=== PATIENT | female | born 1970 | race Two or more races ===

== ENCOUNTER 2017-04-29 20:35 | Inpatient (IN) | payer MEDICAID ==
[~2017-04-29] VITALS: Ht 157.5 cm; Wt 79.4 kg
[2017-04-29] MEDS ORDERED: NKM (21:02)
[2017-04-29] MEDS ORDERED: Lidocaine 2% Visc 15ml soln ORAL ONE (21:30)
[2017-04-29] MEDS ORDERED: Dicyclomine HCl 10mg/5ml oral soln ORAL ONE (21:30)
[2017-04-29] MEDS ORDERED: Mylanta II UD 30ml ORAL ONE (21:30)
[2017-04-29 21:50] LABS: BASOPHILS % (AUTO) 0.4 % (0.0-2.0); EOSINOPHILS % (AUTO) 0.3 % (0.0-3.0); HEMATOCRIT 38.8 % (37.0-47.0); HEMOGLOBIN 13.4 G/DL (12.0-16.0); MEAN CORPUSCULAR VOLUME 87 FL (80-99); MONOCYTES % (AUTO) 5.2 % (1.0-10.0); NEUTROPHILS % (AUTO) 80.2 % (45.0-75.0); PLATELET COUNT 228 K/UL (150-450); RED BLOOD COUNT 4.45 M/UL (4.20-5.40); RED CELL DISTRIBUTION WIDTH 11.8 % (11.6-14.8)
[2017-04-29 22:02] LABS: ANION GAP 6 mmol/L (5-15); BLOOD UREA NITROGEN 13 mg/dL (7-18); CALCIUM 8.8 MG/DL (8.5-10.1); CARBON DIOXIDE 26 MMOL/L (21-32); CHLORIDE 103 MMOL/L (98-107); CREATININE 0.7 MG/DL (0.55-1.30); POTASSIUM 3.4 MMOL/L (3.5-5.1); SODIUM 135 MMOL/L (136-145)
[2017-04-29 22:07] LABS: ALANINE AMINOTRANSFERASE 199 U/L (12-78); ALBUMIN 3.7 G/DL (3.4-5.0); ALBUMIN/GLOBULIN RATIO 0.9 (1.0-2.7); ALKALINE PHOSPHATASE 126 U/L (46-116); ASPARTATE AMINO TRANSFERASE 285 U/L (15-37)
[2017-04-29 22:26] LABS: APPEARANCE,URINE SLIGHTLY CLOUDY; BILIRUBIN, URINE NEGATIVE (NEGATIVE); GLUCOSE, URINE (UA) NEGATIVE (NEGATIVE); KETONES,URINE NEGATIVE (NEGATIVE); LEUKOCYTE ESTERASE ,URINE 1+ (NEGATIVE); NITRITE,URINE NEGATIVE (NEGATIVE); PH,URINE 8 (4.5-8.0); PROTEIN,URINE NEGATIVE (NEGATIVE); UROBILINOGEN,URINE 1 MG/DL (0.0-1.0)
[2017-04-29 22:27] LABS: COLOR,URINE YELLOW
[2017-04-29] MEDS ORDERED: cefTRIAXone 1 GM in NS 55 ML IVPB ONE (23:00)
[2017-04-30] MEDS ORDERED: Piperacillin/Tazobactam 3.375 GM in NS 110 ML IVPB ONE (02:00)
[2017-04-30] MEDS ORDERED: Zosyn 3.375gm inj ONE (02:15)
--- NOTE | 2017-04-30 02:15 | Emergency Room Report ---
History of Present Illness General Chief Complaint: Abdominal Pain Source: Patient Present Illness HPI 46-year-old female presents ED for evaluation. Complaining of abdominal pain which started tonight. Epigastric, sharp, 8 out of 10, radiating to the back. Denies chest pain or shortness of breath. Denies fevers or chills. Notes nausea, denies vomiting. No other aggravating or relieving factors. Denies any other specific symptoms Allergies: Coded Allergies: No Known Allergies (Unverified , 04/29/17) Patient History Past Medical History: none Past Surgical History: none Pertinent Family History: none Social History: Denies: smoking, alcohol use, drug use Last Menstrual Period: unk Now: No Immunizations: UTD Reviewed Nursing Documentation: PMH: Agreed, PSxH: Agreed Nursing Documentation-PMH Past Medical History: No Stated History Review of Systems All Other Systems: negative except mentioned in HPI Physical Exam Vital Signs Date Time Temp Pulse Resp B/P (MAP) Pulse Ox O2 Delivery O2 Flow Rate FiO2 04/29/17 20:57 98.3 83 16 114/58 100 Room Air 98.2 Sp02 EP Interpretation: reviewed, normal General Appearance: no apparent distress, alert, GCS 15, non-toxic Head: normocephalic, atraumatic Eyes: bilateral eye normal inspection, bilateral eye PERRL ENT: hearing grossly normal, normal pharynx, no angioedema, normal voice Neck: full range of motion, supple/symm/no masses Respiratory: chest non-tender, lungs clear, normal breath sounds, speaking full sentences Cardiovascular #1: regular rate, rhythm, no edema Cardiovascular #2: 2+ carotid (R), 2+ carotid (L), 2+ radial (R), 2+ radial (L) , 2+ dorsalis pedis (R), 2+ dorsalis pedis (L) Gastrointestinal: normal bowel sounds, soft, non-distended, no guarding, no rebound, tenderness - Epigastric Rectal: deferred Genitourinary: normal inspection, no CVA tenderness Musculoskeletal: back normal, gait/station normal, normal range of motion, non- tender Neurologic: alert, oriented x3, responsive, motor strength/tone normal, sensory intact, speech normal Psychiatric: judgement/insight normal, memory normal, mood/affect normal, no suicidal/homicidal ideation Reflexes: 3+ bicep (R), 3+ bicep (L), 3+ tricep (R), 3+ tricep (L), 3+ knee (R) , 3+ knee (L) Skin: normal color, no rash, warm/dry, well hydrated Lymphatic: no adenopathy Medical Decision Making Diagnostic Impression: Primary Impression: Cholecystitis Additional Impression: UTI (urinary tract infection) Qualified Codes: N39.0 - Urinary tract infection, site not specified ER Course Hospital Course 46-year-old F presents to ED with epigastric pain Differential diagnoses include: Appendicitis, cholecystitis, small bowel obstruction Clinical course Patient placed on stretcher. potline monitor. After initial history and physical I ordered labs, IV fluids, UA, pain medication and Abd US Labs - leukocytosis noted, Hb/Hct stable. electrolytes ok. LFTs elevated. UA+ bacteria RUQ US -multiple gallstones, thickened gallbladder wall with dilated common bile duct Antibiotics given. Discussed findings with patient. Clinically concerning for cholecystitis Case discussed with Dr. Mancilla and he agreed to consult. Case discussed with Dr. Chavez and he agreed to accept the patient to his service for further care and support I feel this is a highly complex case requiring extensive working including EKG/ Rhythm strip, Xray/CT/US, Blood/urine lab work, repeat exams while in ED, and administration of strong opiates/narcotics for pain control, admission to hospital or close patient follow up. Diagnosis - cholecystitis, UTI Patient admitted to floor in serious condition Labs Test 04/29/17 21:34 04/29/17 22:04 White Blood Count 12.0 K/UL (4.8-10.8) Red Blood Count 4.45 M/UL (4.20-5.40) Hemoglobin 13.4 G/DL (12.0-16.0) Hematocrit 38.8 % (37.0-47.0) Mean Corpuscular Volume 87 FL (80-99) Mean Corpuscular Hemoglobin 30.1 PG (27.0-31.0) Mean Corpuscular Hemoglobin Concent 34.6 G/DL (32.0-36.0) Red Cell Distribution Width 11.8 % (11.6-14.8) Platelet Count 228 K/UL (150-450) Mean Platelet Volume 8.0 FL (6.5-10.1) Neutrophils (%) (Auto) 80.2 % (45.0-75.0) Lymphocytes (%) (Auto) 14.0 % (20.0-45.0) Monocytes (%) (Auto) 5.2 % (1.0-10.0) Eosinophils (%) (Auto) 0.3 % (0.0-3.0) Basophils (%) (Auto) 0.4 % (0.0-2.0) Sodium Level 135 MMOL/L (136-145) Potassium Level 3.4 MMOL/L (3.5-5.1) Chloride Level 103 MMOL/L (98-107) Carbon Dioxide Level 26 MMOL/L (21-32) Anion Gap 6 mmol/L (5-15) Blood Urea Nitrogen 13 mg/dL (7-18) Creatinine 0.7 MG/DL (0.55-1.30) Estimat Glomerular Filtration Rate > 60 mL/min (>60) Glucose Level 133 MG/DL (74-106) Calcium Level 8.8 MG/DL (8.5-10.1) Total Bilirubin 1.0 MG/DL (0.2-1.0) Aspartate Amino Transf (AST/SGOT) 285 U/L (15-37) Alanine Aminotransferase (ALT/SGPT) 199 U/L (12-78) Alkaline Phosphatase 126 U/L (46-116) Total Protein 7.8 G/DL (6.4-8.2) Albumin 3.7 G/DL (3.4-5.0) Globulin 4.1 g/dL Albumin/Globulin Ratio 0.9 (1.0-2.7) Lipase 196 U/L (73-393) Urine Color Yellow Urine Appearance Slightly cloudy Urine pH 8 (4.5-8.0) Urine Specific [place] 1.015 (1.005-1.035) Urine Protein Negative (NEGATIVE) Urine Glucose (UA) Negative (NEGATIVE) Urine Ketones Negative (NEGATIVE) Urine Occult Blood Negative (NEGATIVE) Urine Nitrite Negative (NEGATIVE) Urine Bilirubin Negative (NEGATIVE) Urine Urobilinogen 1 MG/DL (0.0-1.0) Urine Leukocyte Esterase 1+ (NEGATIVE) Urine RBC 2-4 /HPF (0 - 2) Urine WBC 5-10 /HPF (0 - 2) Urine Squamous Epithelial Cells Few /LPF (NONE/OCC) Urine Amorphous Sediment Moderate /LPF (NONE) Urine Bacteria Moderate /HPF (NONE) Urine HCG, Qualitative Negative CT/MRI/US Diagnostic Results CT/MRI/US Diagnostic Results : Imaging Test Ordered: Abdominal ultrasound Impression Multiple gallstones, common bile duct dilated. No free fluid. Thickened gallbladder wall Last Vital Signs Date Time Temp Pulse Resp B/P (MAP) Pulse Ox O2 Delivery O2 Flow Rate FiO2 04/29/17 20:57 98.3 83 16 114/58 100 Room Air 98.2 Status: improved Disposition: ADMITTED INPATIENT Condition: Serious Referrals: NOT CHOSEN IPA/,REFERRING (PCP) RUMA LYNCH M.D. Apr 30, 2017 02:15
[2017-04-30 02:40] VITALS: BP 92/58
[2017-04-30 03:35] VITALS: BP 91/57
[2017-04-30] MEDS: D5NS 1,000 ML IV SCH ×2 (06:21→16:35)
--- NOTE | 2017-04-30 08:33 | History & Physical ---
History and Physical History & Physicial seen and examined. Dictation is completed. Rick Chavez MD Apr 30, 2017 08:33
--- NOTE | 2017-04-30 08:35 | General Progress Note ---
Assessment/Plan Status: stable Assessment/Plan 1- Acute/chronic cholecysititis 2- HypoNatremia 3- HyopoKalemia Plan GI Surgeon consulted NPO Subjective ROS Limited/Unobtainable: No Constitutional: Reports: no symptoms Gastrointestinal/Abdominal: Reports: abdominal pain Allergies: Coded Allergies: No Known Allergies (Unverified , 04/29/17) Objective Last 24 Hour Vital Signs Date Time Temp Pulse Resp B/P (MAP) Pulse Ox O2 Delivery O2 Flow Rate FiO2 04/30/17 03:35 98.1 56 16 91/57 98 Room Air 98.1 04/30/17 03:20 98.7 55 16 92/58 99 Room Air 04/30/17 02:40 98.7 55 16 92/58 99 Room Air 98.7 04/29/17 20:57 98.3 83 16 114/58 100 Room Air 98.2 Intake and Output 04/29/17 04/30/17 19:00 07:00 Intake Total 1165 ml Balance 1165 ml Intake IV Total 1165 ml # Voids 2 Laboratory Tests 04/29/17 21:34: White Blood Count 12.0H, Red Blood Count 4.45, Hemoglobin 13.4, Hematocrit 38.8 , Mean Corpuscular Volume 87, Mean Corpuscular Hemoglobin 30.1, Mean Corpuscular Hemoglobin Concent 34.6, Red Cell Distribution Width 11.8, Platelet Count 228, Mean Platelet Volume 8.0, Neutrophils (%) (Auto) 80.2H, Lymphocytes ( %) (Auto) 14.0L, Monocytes (%) (Auto) 5.2, Eosinophils (%) (Auto) 0.3, Basophils (%) (Auto) 0.4, Sodium Level 135L, Potassium Level 3.4L, Chloride Level 103, Carbon Dioxide Level 26, Anion Gap 6, Blood Urea Nitrogen 13, Creatinine 0.7, Estimat Glomerular Filtration Rate > 60, Glucose Level 133H, Calcium Level 8.8, Total Bilirubin 1.0, Aspartate Amino Transf (AST/SGOT) 285H, Alanine Aminotransferase (ALT/SGPT) 199H, Alkaline Phosphatase 126H, Total Protein 7.8, Albumin 3.7, Globulin 4.1, Albumin/Globulin Ratio 0.9L, Lipase 196 04/29/17 22:04: Urine Color Yellow, Urine Appearance Slightly cloudy, Urine pH 8, Urine Specific [place] 1.015, Urine Protein Negative, Urine Glucose (UA) Negative, Urine Ketones Negative, Urine Occult Blood Negative, Urine Nitrite Negative, Urine Bilirubin Negative, Urine Urobilinogen 1H, Urine Leukocyte Esterase 1+H, Urine RBC 2-4H, Urine WBC 5-10H, Urine Squamous Epithelial Cells Few, Urine Amorphous Sediment ModerateH, Urine Bacteria ModerateH, Urine HCG, Qualitative Negative Height (Feet): 5 Height (Inches): 2.00 Weight (Pounds): 175 General Appearance: no apparent distress EENT: PERRL/EOMI Neck: supple Cardiovascular: normal rate Respiratory/Chest: lungs clear Abdomen: guarding, other - no rebound tendreness Extremities: non-tender Neurologic: packing attendant II-XII grossly normal Rick Chavez MD Apr 30, 2017 08:35
--- NOTE | 2017-04-30 08:55 | Diagnostic Imaging Report ---
Indication: Abdominal pain Technique: Ultrasound of the abdomen. Comparison: None Findings: The pancreas is incompletely visualized. Visualized portions are unremarkable. Liver measures 16 cm and demonstrates increased echogenicity. No focal liver lesions are identified. Visualized portions of the main portal vein and the hepatic veins are grossly unremarkable although incompletely evaluated. Gallstones are present. The gallbladder wall measures 6 mm. Common bile duct measures 4 mm. Bilateral kidneys demonstrate normal echogenicity. No focal renal lesions are seen. There is no hydronephrosis. There is a 6 mm echogenic focus of the right kidney. The spleen is normal in size and echogenicity. The visualized aorta is normal in caliber. Visualized portions of the inferior vena cava are unremarkable. Impression: Cholelithiasis with gallbladder wall thickening measuring 6 mm. Clinical correlation recommended for acute cholecystitis. HIDA scan may be obtained for further evaluation. Increased echogenicity of the liver suggestive of fatty infiltration. Punctate echogenic focus in the right kidney could represent nonspecific calcification or nonobstructive calculus. No hydronephrosis.
[2017-04-30 09:00] VITALS: BP 93/49
[2017-04-30] MEDS: Piperacillin/Tazobactam 3.375 GM in NS 110 ML IVPB SCH ×2 (09:03→16:35)
[2017-04-30] MEDS: Heparin 5000 units/ml inj SUBQ SCH ×2 (09:11→20:49)
[2017-04-30 11:50] VITALS: BP 90/69
[2017-04-30 12:21] LABS: CHOLESTEROL 137 MG/DL (< 200); HDL CHOLESTEROL 62 MG/DL (40-60); TRIGLYCERIDES 36 MG/DL (30-150)
--- NOTE | 2017-04-30 12:57 | Consultation ---
History of Present Illness General Date patient seen: Apr 30, 2017 Chief Complaint: Abdominal Pain Reason for Consultation: abdominal pain Present Illness HPI 46F presented to ED with complaints of epigastric/RUQ abdominal pain with associated nausea and emesis x1 day. as per patient, she was in her normal state of health until yesterday when she developed acute epigastric/RUQ pain with radiation to the right scapula. had episode of nausea and on bloody emesis after onset. came to ED for evaluation and was admitted for care and management. states that since pain has resolved and she feels well. currently no n/v/f/c. labs demonstrated slight leukocytosis of 12k, ultrasound with cholelithiasis and gallbladder wall thickening, LFT's elevated. surgery called to evaluate. no prior history of similar episodes. +diarrhea Allergies: Coded Allergies: No Known Allergies (Unverified , 04/29/17) Medication History Scheduled No Known Medications* (NKM - No Known Medications*), 0 ., (Reported) Patient History History Provided By: Patient Healthcare decision maker Resuscitation status Full Code Advanced Directive on File Past Medical/Surgical History Past Medical/Surgical History: (1) Cholecystitis (2) UTI (urinary tract infection) Review of Systems Constitutional: Denies: no symptoms, see HPI, chills, sweats, fever, malaise, weakness, other Eye: Denies: no symptoms, see HPI, eye pain, blurred vision, tearing, double vision, nose pain, nose congestion, acuity changes, discharge, other ENT: Denies: no symptoms, see HPI, ear pain, ear discharge, nose pain, nose congestion, throat pain, throat swelling, mouth pain, hearing loss, nasal discharge, other Respiratory: Denies: no symptoms, see HPI, cough, orthopnea, shortness of breath, stridor, wheezing, HATCH, sputum, other Cardiovascular: Denies: no symptoms, see HPI, chest pain, edema, palpitations, syncope, PND, other Gastrointestinal: Reports: abdominal pain, diarrhea, nausea, vomiting Genitourinary: Denies: no symptoms, see HPI, discharge, dysuria, frequency, hematuria, pain, retention, incontinence, urgency, vag bleed/dc, other Musculoskeletal: Denies: no symptoms, see HPI, back pain, gout, joint pain, joint swelling, muscle pain, muscle stiffness, other Skin: Denies: no symptoms, see HPI, rash, change in color, change in hair/nails , dryness, lesions, other Psychiatric: Denies: no symptoms, see HPI, prior hx, anxiety, depressed feelings, emotional problems, SI, HI, hallucinations, other Neurological: Denies: no symptoms, see HPI, headache, numbness, paresthesia, seizure, tingling, tremors, focal weakness, syncope, dizziness, other Endocrine: Denies: no symptoms, see HPI, excessive sweating, flushing, intolerance to temperature, increased thirst, increased urine, unexplained weight loss, other Hematologic/Lymphatic: Denies: no symptoms, see HPI, anemia, blood clots, easy bleeding, easy bruising, swollen glands, diathesis, other Physical Exam General Appearance: no apparent distress, alert Lines, tubes and drains: peripheral HEENT: normocephalic, anicteric, mucous membranes moist Neck: supple, normal inspection Respiratory/Chest: lungs clear, normal breath sounds, no respiratory distress Cardiovascular/Chest: normal peripheral pulses, normal rate Abdomen: normal bowel sounds, non tender, soft, no organomegaly, no mass Extremities: normal range of motion, non-tender Skin Exam: normal pigmentation, warm/dry Neurologic: alert, oriented x 3, responsive Last 24 Hour Vital Signs Date Time Temp Pulse Resp B/P (MAP) Pulse Ox O2 Delivery O2 Flow Rate FiO2 04/30/17 11:50 98.1 58 18 90/69 97 98.1 04/30/17 09:00 98.2 69 18 93/49 98 98.2 04/30/17 03:35 98.1 56 16 91/57 98 Room Air 98.1 04/30/17 03:20 98.7 55 16 92/58 99 Room Air 04/30/17 02:40 98.7 55 16 92/58 99 Room Air 98.7 04/29/17 20:57 98.3 83 16 114/58 100 Room Air 98.2 Intake and Output 04/29/17 04/30/17 19:00 07:00 Intake Total 1165 ml Balance 1165 ml Intake IV Total 1165 ml # Voids 2 Laboratory Tests Test 04/29/17 21:34 04/29/17 22:04 04/30/17 11:20 White Blood Count 12.0 K/UL (4.8-10.8) H Red Blood Count 4.45 M/UL (4.20-5.40) Hemoglobin 13.4 G/DL (12.0-16.0) Hematocrit 38.8 % (37.0-47.0) Mean Corpuscular Volume 87 FL (80-99) Mean Corpuscular Hemoglobin 30.1 PG (27.0-31.0) Mean Corpuscular Hemoglobin Concent 34.6 G/DL (32.0-36.0) Red Cell Distribution Width 11.8 % (11.6-14.8) Platelet Count 228 K/UL (150-450) Mean Platelet Volume 8.0 FL (6.5-10.1) Neutrophils (%) (Auto) 80.2 % (45.0-75.0) H Lymphocytes (%) (Auto) 14.0 % (20.0-45.0) L Monocytes (%) (Auto) 5.2 % (1.0-10.0) Eosinophils (%) (Auto) 0.3 % (0.0-3.0) Basophils (%) (Auto) 0.4 % (0.0-2.0) Sodium Level 135 MMOL/L (136-145) L Potassium Level 3.4 MMOL/L (3.5-5.1) L Chloride Level 103 MMOL/L (98-107) Carbon Dioxide Level 26 MMOL/L (21-32) Anion Gap 6 mmol/L (5-15) Blood Urea Nitrogen 13 mg/dL (7-18) Creatinine 0.7 MG/DL (0.55-1.30) Estimat Glomerular Filtration Rate > 60 mL/min (>60) Glucose Level 133 MG/DL (74-106) H Calcium Level 8.8 MG/DL (8.5-10.1) Total Bilirubin 1.0 MG/DL (0.2-1.0) Aspartate Amino Transf (AST/SGOT) 285 U/L (15-37) H Alanine Aminotransferase (ALT/SGPT) 199 U/L (12-78) H Alkaline Phosphatase 126 U/L (46-116) H Total Protein 7.8 G/DL (6.4-8.2) Albumin 3.7 G/DL (3.4-5.0) Globulin 4.1 g/dL Albumin/Globulin Ratio 0.9 (1.0-2.7) L Lipase 196 U/L (73-393) Urine Color Yellow Urine Appearance Slightly cloudy Urine pH 8 (4.5-8.0) Urine Specific [place] 1.015 (1.005-1.035) Urine Protein Negative (NEGATIVE) Urine Glucose (UA) Negative (NEGATIVE) Urine Ketones Negative (NEGATIVE) Urine Occult Blood Negative (NEGATIVE) Urine Nitrite Negative (NEGATIVE) Urine Bilirubin Negative (NEGATIVE) Urine Urobilinogen 1 MG/DL (0.0-1.0) H Urine Leukocyte Esterase 1+ (NEGATIVE) H Urine RBC 2-4 /HPF (0 - 2) H Urine WBC 5-10 /HPF (0 - 2) H Urine Squamous Epithelial Cells Few /LPF (NONE/OCC) Urine Amorphous Sediment Moderate /LPF (NONE) H Urine Bacteria Moderate /HPF (NONE) H Urine HCG, Qualitative Negative Hemoglobin A1c Pending Triglycerides Level Pending Cholesterol Level Pending LDL Cholesterol Pending HDL Cholesterol Pending Cholesterol/HDL Ratio Pending Height (Feet): 5 Height (Inches): 2.00 Weight (Pounds): 175 Medications Current Medications Medications (Trade) Dose Ordered Sig/Shruthi Route PRN Reason Start Time Stop Time Status Last Admin Dose Admin Acetaminophen (Tylenol) 650 mg Q4H PRN ORAL Mild Pain/Temp > 100.5 04/30/17 05:45 05/30/17 05:44 Dextrose/Sodium Chloride 1,000 ml @ 100 mls/hr Q10H IV 04/30/17 06:00 05/30/17 05:59 04/30/17 06:21 Heparin Sodium (Porcine) (Heparin 5000 units/ml) 5,000 units EVERY 12 HOURS SUBQ 04/30/17 09:00 05/30/17 08:59 04/30/17 09:11 Morphine Sulfate (Morphine Sulfate) 2 mg Q6H PRN IVP For Severe Pain 04/30/17 05:45 05/07/17 05:44 Ondansetron HCl (Zofran) 4 mg Q6H PRN IVP Nausea & Vomiting 04/30/17 05:45 05/30/17 05:44 Pantoprazole (Protonix) 40 mg DAILY ORAL 04/30/17 09:00 05/30/17 08:59 04/30/17 09:03 Piperacillin Sod/ Tazobactam Sod 3.375 gm/Sodium Chloride 110 ml @ 27.5 mls/hr Q8H IVPB 04/30/17 09:00 05/07/17 08:59 04/30/17 09:03 Assessment/Plan Problem List: (1) Cholecystitis Assessment & Plan: 46F with symptomatic cholelithiasis, biliary colic, acute cholecystitis which symptoms have since resolved. Afebrile, HD stable, labs reviewed. exam benign. -HIDA scan (unfortunately cannot be done till tuesday) -NPO for now -IV fluids -If HIDA positive will need cholecystectomy, if HIDA negative can be done as an outpatient electively. will follow with recs. that you for this consultation ICD Codes: K81.9 - Cholecystitis, unspecified SNOMED: [id number] Status: stable LaurentKobe Apr 30, 2017 12:57
--- NOTE | 2017-04-30 16:00 | History and Physical Report ---
DATE OF ADMISSION: 04/30/2017 HISTORY OF PRESENT ILLNESS: The patient is a 46-year-old female with unremarkable past medical history. The patient presented with leukocytosis and abdominal pain. The patient denies any nausea or vomitus. No fever. No chills. REVIEW OF SYSTEMS: All 12 elements of review of systems reviewed with the patient. Pertinent positive and negative as above. PAST MEDICAL HISTORY: Unremarkable. PAST SURGICAL HISTORY: Denies. MEDICATIONS: Current hospital medications including Zosyn, D5 normal saline, and heparin 5000 b.i.d. reviewed and reconciled. SOCIAL HISTORY: Denies history of illicit drug abuse, alcohol abuse, or smoking. PHYSICAL EXAMINATION: VITAL SIGNS: Blood pressure 120/80, temperature 98.2, pulse oximetry 98% on room air. HEAD AND NECK: Atraumatic and normocephalic. CHEST: Clear to auscultation. HEART: S1 and S2. Regular rate and rhythm. ABDOMEN: Positive for tenderness. No rebound tenderness. No organomegaly. NEUROLOGIC: The patient is awake, alert, and oriented x3. LABORATORY AND DIAGNOSTIC DATA: Dated April 29, 2017 showed sodium 135, potassium 3.4. AST 285 and ALT 199. WBC 12, hemoglobin 13.4. Urinalysis shows positive for bacteria. ASSESSMENT AND PLAN: 1. Acute/chronic cholecystitis. 2. Hyponatremia. 3. Hypokalemia. 4. Abnormal LFTs. PLAN OF CARE: Surgeon Dr. Mancilla, GI Dr. Bowers have been notified and consulted. We will continue with the empiric antibiotic regimen. Rick Chavez M.D. DR: Bud JOB#: [id number] CC:
[2017-04-30 16:31] VITALS: BP 93/55
[2017-04-30 20:00] VITALS: BP 101/59
[2017-05-01 00:05] VITALS: BP 99/57
[2017-05-01] MEDS: Piperacillin/Tazobactam 3.375 GM in NS 110 ML IVPB SCH ×3 (00:24→16:31)
[2017-05-01] MEDS: D5NS 1,000 ML IV SCH ×4 (02:00→20:45)
--- NOTE | 2017-05-01 03:15 | Consultation ---
DATE OF CONSULTATION: 04/30/2017 GASTROENTEROLOGY CONSULTATION CONSULTING PHYSICIAN: Yasmin Lee M.D. CHIEF COMPLAINT: I was asked to see this patient by Dr. Rick Chavez for evaluation of abdominal pain. HISTORY OF PRESENT ILLNESS: The patient is a pleasant 46-year-old woman, who was in her usual state of health until yesterday when she has noticed onset of nausea, vomiting, right upper quadrant pain, and two times diarrhea. She states she has history of known gallstones, but this is the first time that she had this type of abdominal pain in fact. She denies any hematochezia or hematemesis. The ultrasound done does show cholelithiasis and also shows gallbladder wall thickening. There is some degree of fatty liver changes also seen. PAST MEDICAL HISTORY: Negative. MEDICATIONS: None. ALLERGIES: None. FAMILY HISTORY: Noncontributory. SOCIAL HISTORY: The patient does not smoke, drink alcohol, or use drugs. REVIEW OF SYSTEMS: Otherwise, negative. PHYSICAL EXAMINATION: GENERAL: This a very pleasant woman, seen in her room. HEENT: Normocephalic and atraumatic. Sclerae anicteric. Oropharynx clear. NECK: Supple. CHEST: Clear to auscultation. CARDIOVASCULAR: Revealed a regular rate. ABDOMEN: Soft. Good bowel sounds. There is no tenderness. EXTREMITIES: Revealed no edema. LABORATORY DATA: Noted. ASSESSMENT: This patient presents with abdominal pain in the right upper quadrant area and also abnormal liver test. However, she also has diarrhea, which does not clinically imply acute gallbladder disease. Her gallstones raise suspicion for her gallbladder disease. HIDA scan should be done to confirm gallbladder dysfunction since she has now become nontender since she has been made NPO. Her liver tests should also be followed. The case was discussed with the surgical staff. RECOMMENDATIONS: 1. Continue clears. I will keep NPO as per surgical team preference. 2. HIDA scan. 3. Follow liver test and exam. Thank you for asking me to participate in the care of this patient. Yasmin Lee M.D. DR: BRY JOB#: [id number] CC: ANIL
[2017-05-01 04:00] VITALS: BP 98/57
[2017-05-01 08:00] VITALS: BP 96/58
[2017-05-01 08:26] LABS: BASOPHILS % (AUTO) 0.6 % (0.0-2.0); HEMATOCRIT 34.8 % (37.0-47.0); LYMPHOCYTES % (AUTO) 35.7 % (20.0-45.0); MEAN CORPUSCULAR VOLUME 89 FL (80-99); MONOCYTES % (AUTO) 7.5 % (1.0-10.0); NEUTROPHILS % (AUTO) 54.2 % (45.0-75.0); PLATELET COUNT 200 K/UL (150-450); RED BLOOD COUNT 3.91 M/UL (4.20-5.40); RED CELL DISTRIBUTION WIDTH 11.9 % (11.6-14.8); WHITE BLOOD COUNT 5.8 K/UL (4.8-10.8)
[2017-05-01] MEDS: Heparin 5000 units/ml inj SUBQ SCH ×2 (08:27→20:45)
[2017-05-01 09:22] LABS: ALANINE AMINOTRANSFERASE 279 U/L (12-78); ALBUMIN/GLOBULIN RATIO 0.8 (1.0-2.7); ALKALINE PHOSPHATASE 91 U/L (46-116); ANION GAP 7 mmol/L (5-15); ASPARTATE AMINO TRANSFERASE 114 U/L (15-37); BILIRUBIN,TOTAL 0.5 MG/DL (0.2-1.0); BLOOD UREA NITROGEN 11 mg/dL (7-18); CALCIUM 8.3 MG/DL (8.5-10.1); CARBON DIOXIDE 25 MMOL/L (21-32); CHLORIDE 105 MMOL/L (98-107); CREATININE 0.9 MG/DL (0.55-1.30); POTASSIUM 3.6 MMOL/L (3.5-5.1); SODIUM 137 MMOL/L (136-145)
--- NOTE | 2017-05-01 11:55 | General Progress Note ---
Assessment/Plan Status: stable Assessment/Plan 1. Acute/chronic cholecystitis. 2. Hyponatremia. 3. Hypokalemia. 4. Abnormal LFTs. Plan ok to start liquid diet advance Diet and DC home , once clear by Dr Quan Subjective ROS Limited/Unobtainable: No Constitutional: Reports: no symptoms HEENT: Reports: no symptoms Cardiovascular: Reports: no symptoms Respiratory: Reports: no symptoms Allergies: Coded Allergies: No Known Allergies (Unverified , 04/29/17) Objective Last 24 Hour Vital Signs Date Time Temp Pulse Resp B/P (MAP) Pulse Ox O2 Delivery O2 Flow Rate FiO2 05/01/17 08:00 97.9 54 18 96/58 100 97.9 05/01/17 04:00 97.9 55 18 98/57 97 97.9 05/01/17 00:05 98.2 51 18 99/57 97 98.2 04/30/17 20:00 97.9 50 18 101/59 98 97.9 04/30/17 16:31 98.1 60 18 93/55 97 98.1 Intake and Output 04/30/17 05/01/17 19:00 07:00 Intake Total 737.5 ml 1000 ml Balance 737.5 ml 1000 ml Intake IV Total 737.5 ml 1000 ml # Voids 3 2 Laboratory Tests 05/01/17 07:12: White Blood Count 5.8#, Red Blood Count 3.91L, Hemoglobin 12.0, Hematocrit 34.8L , Mean Corpuscular Volume 89, Mean Corpuscular Hemoglobin 30.7, Mean Corpuscular Hemoglobin Concent 34.6, Red Cell Distribution Width 11.9, Platelet Count 200, Mean Platelet Volume 8.0, Neutrophils (%) (Auto) 54.2, Lymphocytes (% ) (Auto) 35.7, Monocytes (%) (Auto) 7.5, Eosinophils (%) (Auto) 2.0, Basophils ( %) (Auto) 0.6, Sodium Level 137, Potassium Level 3.6, Chloride Level 105, Carbon Dioxide Level 25, Anion Gap 7, Blood Urea Nitrogen 11, Creatinine 0.9, Estimat Glomerular Filtration Rate > 60, Glucose Level 102, Calcium Level 8.3L, Total Bilirubin 0.5, Aspartate Amino Transf (AST/SGOT) 114H, Alanine Aminotransferase (ALT/SGPT) 279H, Alkaline Phosphatase 91, Total Protein 6.7, Albumin 3.0L, Globulin 3.7, Albumin/Globulin Ratio 0.8L Height (Feet): 5 Height (Inches): 2.00 Weight (Pounds): 175 General Appearance: WD/WN EENT: PERRL/EOMI Neck: supple Cardiovascular: normal rate Respiratory/Chest: lungs clear Abdomen: soft Extremities: non-tender Neurologic: final armature tester II-XII grossly normal Rick Chavez MD May 01, 2017 11:55
[2017-05-01 11:58] VITALS: BP 101/56
--- NOTE | 2017-05-01 13:20 | General Surgery Progress Note ---
General Surgery-Progress Note Subjective Symptoms: improved, pain absent Additional Comments no pain. comfortable. no n/v/f/c. doing well. hungry. tolerating clears. Objective Last 24 Hour Vital Signs Date Time Temp Pulse Resp B/P (MAP) Pulse Ox O2 Delivery O2 Flow Rate FiO2 05/01/17 11:58 98.1 55 18 101/56 98 98.1 05/01/17 08:00 97.9 54 18 96/58 100 97.9 05/01/17 04:00 97.9 55 18 98/57 97 97.9 05/01/17 00:05 98.2 51 18 99/57 97 98.2 04/30/17 20:00 97.9 50 18 101/59 98 97.9 04/30/17 16:31 98.1 60 18 93/55 97 98.1 I&O Intake and Output 04/30/17 05/01/17 19:00 07:00 Intake Total 737.5 ml 1000 ml Balance 737.5 ml 1000 ml Intake IV Total 737.5 ml 1000 ml # Voids 3 2 Drains: none Cardiovascular: RSR Respiratory: clear Abdomen: soft, flat, non-tender, present bowel sounds Extremities: no edema, no tenderness Laboratory Tests Test 05/01/17 07:12 White Blood Count 5.8 K/UL (4.8-10.8) # Red Blood Count 3.91 M/UL (4.20-5.40) L Hemoglobin 12.0 G/DL (12.0-16.0) Hematocrit 34.8 % (37.0-47.0) L Mean Corpuscular Volume 89 FL (80-99) Mean Corpuscular Hemoglobin 30.7 PG (27.0-31.0) Mean Corpuscular Hemoglobin Concent 34.6 G/DL (32.0-36.0) Red Cell Distribution Width 11.9 % (11.6-14.8) Platelet Count 200 K/UL (150-450) Mean Platelet Volume 8.0 FL (6.5-10.1) Neutrophils (%) (Auto) 54.2 % (45.0-75.0) Lymphocytes (%) (Auto) 35.7 % (20.0-45.0) Monocytes (%) (Auto) 7.5 % (1.0-10.0) Eosinophils (%) (Auto) 2.0 % (0.0-3.0) Basophils (%) (Auto) 0.6 % (0.0-2.0) Sodium Level 137 MMOL/L (136-145) Potassium Level 3.6 MMOL/L (3.5-5.1) Chloride Level 105 MMOL/L (98-107) Carbon Dioxide Level 25 MMOL/L (21-32) Anion Gap 7 mmol/L (5-15) Blood Urea Nitrogen 11 mg/dL (7-18) Creatinine 0.9 MG/DL (0.55-1.30) Estimat Glomerular Filtration Rate > 60 mL/min (>60) Glucose Level 102 MG/DL (74-106) Calcium Level 8.3 MG/DL (8.5-10.1) L Total Bilirubin 0.5 MG/DL (0.2-1.0) Aspartate Amino Transf (AST/SGOT) 114 U/L (15-37) H Alanine Aminotransferase (ALT/SGPT) 279 U/L (12-78) H Alkaline Phosphatase 91 U/L (46-116) Total Protein 6.7 G/DL (6.4-8.2) Albumin 3.0 G/DL (3.4-5.0) L Globulin 3.7 g/dL Albumin/Globulin Ratio 0.8 (1.0-2.7) L Plan Problems: (1) Cholecystitis Assessment & Plan: 46F with symptomatic cholelithiasis, biliary colic, acute cholecystitis which symptoms have since resolved. Afebrile, HD stable, labs reviewed. exam benign. LFT's improving. symptoms resolved. -HIDA scan (unfortunately cannot be done till tuesday) -okay for diet -IV fluids -If HIDA positive will need cholecystectomy, if HIDA negative can be done as an outpatient electively. -possible d/c tomorrow based on HIDA findings. will follow with recs. that you for this consultation Kobe Mancilla May 01, 2017 13:20
--- NOTE | 2017-05-01 15:36 | General Progress Note ---
Assessment/Plan Assessment/Plan Assessment - Abdominal pain - abnormal LFT - gallstones - thickened GB wall Recommmedations - NPO - observations - Await HIDA - Surgical f/u Subjective Allergies: Coded Allergies: No Known Allergies (Unverified , 04/29/17) Subjective No abd pain awaiting HIDA Objective Last 24 Hour Vital Signs Date Time Temp Pulse Resp B/P (MAP) Pulse Ox O2 Delivery O2 Flow Rate FiO2 05/01/17 11:58 98.1 55 18 101/56 98 98.1 05/01/17 08:00 97.9 54 18 96/58 100 97.9 05/01/17 04:00 97.9 55 18 98/57 97 97.9 05/01/17 00:05 98.2 51 18 99/57 97 98.2 04/30/17 20:00 97.9 50 18 101/59 98 97.9 04/30/17 16:31 98.1 60 18 93/55 97 98.1 Intake and Output 04/30/17 05/01/17 19:00 07:00 Intake Total 737.5 ml 1000 ml Balance 737.5 ml 1000 ml Intake IV Total 737.5 ml 1000 ml # Voids 3 2 Laboratory Tests 05/01/17 07:12: White Blood Count 5.8#, Red Blood Count 3.91L, Hemoglobin 12.0, Hematocrit 34.8L , Mean Corpuscular Volume 89, Mean Corpuscular Hemoglobin 30.7, Mean Corpuscular Hemoglobin Concent 34.6, Red Cell Distribution Width 11.9, Platelet Count 200, Mean Platelet Volume 8.0, Neutrophils (%) (Auto) 54.2, Lymphocytes (% ) (Auto) 35.7, Monocytes (%) (Auto) 7.5, Eosinophils (%) (Auto) 2.0, Basophils ( %) (Auto) 0.6, Sodium Level 137, Potassium Level 3.6, Chloride Level 105, Carbon Dioxide Level 25, Anion Gap 7, Blood Urea Nitrogen 11, Creatinine 0.9, Estimat Glomerular Filtration Rate > 60, Glucose Level 102, Calcium Level 8.3L, Total Bilirubin 0.5, Aspartate Amino Transf (AST/SGOT) 114H, Alanine Aminotransferase (ALT/SGPT) 279H, Alkaline Phosphatase 91, Total Protein 6.7, Albumin 3.0L, Globulin 3.7, Albumin/Globulin Ratio 0.8L Height (Feet): 5 Height (Inches): 2.00 Weight (Pounds): 175 Objective WDWN NCAT supple CTA RRR Soft ND NT No edema ABHINAV VIEYRA May 01, 2017 15:36
[2017-05-01 20:10] VITALS: BP 115/70
[2017-05-02] VITALS: BP 98/56
[2017-05-02] MEDS: Piperacillin/Tazobactam 3.375 GM in NS 110 ML IVPB SCH ×2 (01:13→09:31)
[2017-05-02 04:00] VITALS: BP 85/52
[2017-05-02] MEDS: D5NS 1,000 ML IV SCH (05:30)
[2017-05-02 07:31] LABS: BASOPHILS % (AUTO) 0.9 % (0.0-2.0); EOSINOPHILS % (AUTO) 1.6 % (0.0-3.0); HEMATOCRIT 33.1 % (37.0-47.0); HEMOGLOBIN 11.6 G/DL (12.0-16.0); LYMPHOCYTES % (AUTO) 43.9 % (20.0-45.0); MEAN CORPUSCULAR VOLUME 88 FL (80-99); MONOCYTES % (AUTO) 7.9 % (1.0-10.0); NEUTROPHILS % (AUTO) 45.8 % (45.0-75.0); PLATELET COUNT 189 K/UL (150-450); RED BLOOD COUNT 3.76 M/UL (4.20-5.40); RED CELL DISTRIBUTION WIDTH 11.4 % (11.6-14.8); WHITE BLOOD COUNT 5.8 K/UL (4.8-10.8)
[2017-05-02 07:53] LABS: ALANINE AMINOTRANSFERASE 180 U/L (12-78); ALBUMIN 2.9 G/DL (3.4-5.0); ALBUMIN/GLOBULIN RATIO 0.8 (1.0-2.7); ALKALINE PHOSPHATASE 77 U/L (46-116); ANION GAP 7 mmol/L (5-15); ASPARTATE AMINO TRANSFERASE 47 U/L (15-37); BILIRUBIN,TOTAL 0.5 MG/DL (0.2-1.0); BLOOD UREA NITROGEN 8 mg/dL (7-18); CALCIUM 8.2 MG/DL (8.5-10.1); CARBON DIOXIDE 24 MMOL/L (21-32); CHLORIDE 108 MMOL/L (98-107); CREATININE 0.8 MG/DL (0.55-1.30); POTASSIUM 3.5 MMOL/L (3.5-5.1); SODIUM 139 MMOL/L (136-145)
[2017-05-02 08:00] VITALS: BP 99/57
[2017-05-02] MEDS: Heparin 5000 units/ml inj SUBQ SCH (09:36)
--- NOTE | 2017-05-02 10:59 | General Progress Note ---
Assessment/Plan Status: stable Assessment/Plan 1. Acute/chronic cholecystitis. 2. Hyponatremia. 3. Hypokalemia. 4. Abnormal LFTs. Plan ok to advance Diet and DC home , once clear by Dr Quan Subjective ROS Limited/Unobtainable: No Constitutional: Reports: no symptoms HEENT: Reports: no symptoms Cardiovascular: Reports: no symptoms Allergies: Coded Allergies: No Known Allergies (Unverified , 04/29/17) Objective Last 24 Hour Vital Signs Date Time Temp Pulse Resp B/P (MAP) Pulse Ox O2 Delivery O2 Flow Rate FiO2 05/02/17 08:00 97.6 50 18 99/57 98 Room Air 97.6 05/02/17 04:00 97.7 51 18 85/52 98 Room Air 97.7 05/02/17 00:00 98.1 56 17 98/56 97 Room Air 98.1 05/01/17 20:10 98.0 62 115/70 100 98.0 05/01/17 11:58 98.1 55 18 101/56 98 98.1 Intake and Output 05/01/17 05/02/17 19:00 07:00 Intake Total 965.0 ml 1427.5 ml Balance 965.0 ml 1427.5 ml Intake Oral 200 ml IV Total 965.0 ml 1227.5 ml # Voids 1 Laboratory Tests 05/02/17 06:30: White Blood Count 5.8, Red Blood Count 3.76L, Hemoglobin 11.6L, Hematocrit 33.1L , Mean Corpuscular Volume 88, Mean Corpuscular Hemoglobin 30.8, Mean Corpuscular Hemoglobin Concent 35.1, Red Cell Distribution Width 11.4L, Platelet Count 189, Mean Platelet Volume 9.0, Neutrophils (%) (Auto) 45.8, Lymphocytes (%) (Auto) 43.9, Monocytes (%) (Auto) 7.9, Eosinophils (%) (Auto) 1.6, Basophils (%) (Auto) 0.9, Sodium Level 139, Potassium Level 3.5, Chloride Level 108H, Carbon Dioxide Level 24, Anion Gap 7, Blood Urea Nitrogen 8, Creatinine 0.8, Estimat Glomerular Filtration Rate > 60, Glucose Level 111H, Calcium Level 8.2L, Total Bilirubin 0.5, Aspartate Amino Transf (AST/SGOT) 47H, Alanine Aminotransferase (ALT/SGPT) 180H, Alkaline Phosphatase 77, Total Protein 6.4, Albumin 2.9L, Globulin 3.5, Albumin/Globulin Ratio 0.8L Height (Feet): 5 Height (Inches): 2.00 Weight (Pounds): 175 General Appearance: no apparent distress EENT: PERRL/EOMI Neck: supple Cardiovascular: normal rate Respiratory/Chest: lungs clear Abdomen: soft Extremities: non-tender Neurologic: legal biller II-XII grossly normal Rick Chavez MD May 02, 2017 10:59
--- NOTE | 2017-05-02 12:19 | GI Progress Note ---
Assessment/Plan Problems: (1) Cholecystitis ICD Codes: K81.9 - Cholecystitis, unspecified SNOMED: 78549828 Status: unchanged Status Narrative Discussed with Dr. Bowers. Assessment/Plan Assessment - Abdominal pain - abnormal LFT - gallstones - thickened GB wall Recommmedations - NPO - observations - Await HIDA - Surgical f/u Subjective Gastrointestinal/Abdominal: Reports: abdominal pain Objective Last 24 Hour Vital Signs Date Time Temp Pulse Resp B/P (MAP) Pulse Ox O2 Delivery O2 Flow Rate FiO2 05/02/17 08:00 97.6 50 18 99/57 98 Room Air 97.6 05/02/17 04:00 97.7 51 18 85/52 98 Room Air 97.7 05/02/17 00:00 98.1 56 17 98/56 97 Room Air 98.1 05/01/17 20:10 98.0 62 115/70 100 98.0 Intake and Output 05/01/17 05/02/17 19:00 07:00 Intake Total 965.0 ml 1427.5 ml Balance 965.0 ml 1427.5 ml Intake Oral 200 ml IV Total 965.0 ml 1227.5 ml # Voids 1 Laboratory Tests Test 05/02/17 06:30 White Blood Count 5.8 K/UL (4.8-10.8) Red Blood Count 3.76 M/UL (4.20-5.40) L Hemoglobin 11.6 G/DL (12.0-16.0) L Hematocrit 33.1 % (37.0-47.0) L Mean Corpuscular Volume 88 FL (80-99) Mean Corpuscular Hemoglobin 30.8 PG (27.0-31.0) Mean Corpuscular Hemoglobin Concent 35.1 G/DL (32.0-36.0) Red Cell Distribution Width 11.4 % (11.6-14.8) L Platelet Count 189 K/UL (150-450) Mean Platelet Volume 9.0 FL (6.5-10.1) Neutrophils (%) (Auto) 45.8 % (45.0-75.0) Lymphocytes (%) (Auto) 43.9 % (20.0-45.0) Monocytes (%) (Auto) 7.9 % (1.0-10.0) Eosinophils (%) (Auto) 1.6 % (0.0-3.0) Basophils (%) (Auto) 0.9 % (0.0-2.0) Sodium Level 139 MMOL/L (136-145) Potassium Level 3.5 MMOL/L (3.5-5.1) Chloride Level 108 MMOL/L (98-107) H Carbon Dioxide Level 24 MMOL/L (21-32) Anion Gap 7 mmol/L (5-15) Blood Urea Nitrogen 8 mg/dL (7-18) Creatinine 0.8 MG/DL (0.55-1.30) Estimat Glomerular Filtration Rate > 60 mL/min (>60) Glucose Level 111 MG/DL (74-106) H Calcium Level 8.2 MG/DL (8.5-10.1) L Total Bilirubin 0.5 MG/DL (0.2-1.0) Aspartate Amino Transf (AST/SGOT) 47 U/L (15-37) H Alanine Aminotransferase (ALT/SGPT) 180 U/L (12-78) H Alkaline Phosphatase 77 U/L (46-116) Total Protein 6.4 G/DL (6.4-8.2) Albumin 2.9 G/DL (3.4-5.0) L Globulin 3.5 g/dL Albumin/Globulin Ratio 0.8 (1.0-2.7) L Height (Feet): 5 Height (Inches): 2.00 Weight (Pounds): 175 General Appearance: WD/WN, no apparent distress, alert Cardiovascular: normal rate Respiratory/Chest: normal breath sounds, no respiratory distress Abdominal Exam: normal bowel sounds, non tender, soft Extremities: normal range of motion, non-tender Kayce Baker N.P. May 02, 2017 12:19
[2017-05-02] MEDS: Morphine Sulfate 2mg/ml Inj IVP PRN ×2 (12:30→13:52)
--- NOTE | 2017-05-02 13:56 | Diagnostic Imaging Report ---
Indications: 46-year-old female with abdominal pain Technique: IV administration 5.5 mCi 99 M technetium Choletec. Serial images obtained over the abdomen for 90 minutes at 60 minutes, patient given 2 mg of morphine IV. Comparison: None Findings: Prompt tracer uptake within the liver. Extrahepatic bile ducts are seen at 10 minutes. Excretion into the duodenum demonstrated at 13 minutes. After morphine administration, dynamic images cannot be obtained due to camera malfunction. Static images obtained 30 minutes after morphine administration which demonstrated the gallbladder Impression: Negative. No evidence of common bile duct or cystic duct obstruction Report phoned to Dr. Mancilla at the time of interpretation
--- NOTE | 2017-05-02 18:06 | General Surgery Progress Note ---
General Surgery-Progress Note Subjective Symptoms: improved, tolerating diet Additional Comments no complaints. doing well. comfortable. HIDA negative. Objective Last 24 Hour Vital Signs Date Time Temp Pulse Resp B/P (MAP) Pulse Ox O2 Delivery O2 Flow Rate FiO2 05/02/17 08:00 97.6 50 18 99/57 98 Room Air 97.6 05/02/17 04:00 97.7 51 18 85/52 98 Room Air 97.7 05/02/17 00:00 98.1 56 17 98/56 97 Room Air 98.1 05/01/17 20:10 98.0 62 115/70 100 98.0 I&O Intake and Output 05/01/17 05/02/17 19:00 07:00 Intake Total 965.0 ml 1427.5 ml Balance 965.0 ml 1427.5 ml Intake Oral 200 ml IV Total 965.0 ml 1227.5 ml # Voids 1 Cardiovascular: RSR Respiratory: clear Abdomen: soft, flat, non-tender, present bowel sounds Extremities: no edema, no tenderness Laboratory Tests Test 05/02/17 06:30 White Blood Count 5.8 K/UL (4.8-10.8) Red Blood Count 3.76 M/UL (4.20-5.40) L Hemoglobin 11.6 G/DL (12.0-16.0) L Hematocrit 33.1 % (37.0-47.0) L Mean Corpuscular Volume 88 FL (80-99) Mean Corpuscular Hemoglobin 30.8 PG (27.0-31.0) Mean Corpuscular Hemoglobin Concent 35.1 G/DL (32.0-36.0) Red Cell Distribution Width 11.4 % (11.6-14.8) L Platelet Count 189 K/UL (150-450) Mean Platelet Volume 9.0 FL (6.5-10.1) Neutrophils (%) (Auto) 45.8 % (45.0-75.0) Lymphocytes (%) (Auto) 43.9 % (20.0-45.0) Monocytes (%) (Auto) 7.9 % (1.0-10.0) Eosinophils (%) (Auto) 1.6 % (0.0-3.0) Basophils (%) (Auto) 0.9 % (0.0-2.0) Sodium Level 139 MMOL/L (136-145) Potassium Level 3.5 MMOL/L (3.5-5.1) Chloride Level 108 MMOL/L (98-107) H Carbon Dioxide Level 24 MMOL/L (21-32) Anion Gap 7 mmol/L (5-15) Blood Urea Nitrogen 8 mg/dL (7-18) Creatinine 0.8 MG/DL (0.55-1.30) Estimat Glomerular Filtration Rate > 60 mL/min (>60) Glucose Level 111 MG/DL (74-106) H Calcium Level 8.2 MG/DL (8.5-10.1) L Total Bilirubin 0.5 MG/DL (0.2-1.0) Aspartate Amino Transf (AST/SGOT) 47 U/L (15-37) H Alanine Aminotransferase (ALT/SGPT) 180 U/L (12-78) H Alkaline Phosphatase 77 U/L (46-116) Total Protein 6.4 G/DL (6.4-8.2) Albumin 2.9 G/DL (3.4-5.0) L Globulin 3.5 g/dL Albumin/Globulin Ratio 0.8 (1.0-2.7) L Plan Problems: (1) Cholecystitis Assessment & Plan: 46F with symptomatic cholelithiasis, biliary colic, acute cholecystitis which symptoms have since resolved. Afebrile, HD stable, labs reviewed. exam benign. LFT's improving. symptoms resolved. HIDA negative okay for diet, low fat okay to d/c from surgical standpoint. can follow with me as outpatient if desired. will follow with recs. that you for this consultation Kobe aMncilla May 02, 2017 18:06
--- NOTE | 2017-05-04 14:59 | Discharge Summary ---
Discharge Summary Hospital Course Date of Admission Apr 30, 2017 at 00:55 Date of Discharge May 02, 2017 at 17:35 Admitting Diagnosis CHOLECYSTITIS, URINARY TRACT INFECTION HPI Tavia Busch is a 46 year old female who was admitted on Apr 30, 2017 at 00:55 for Cholecystitis,Urinary Tract Infection Hospital Course dc summary #[id number] Discharge Discharge Disposition Patient was discharged to Home () Discharge Diagnoses: Yared (Katerinharmony)Alix NP May 04, 2017 14:58
--- NOTE | 2017-05-04 23:00 | Discharge Summary 2 SIG ---
DATE OF ADMISSION: 04/30/2017 DATE OF DISCHARGE: 05/02/2017 REASON FOR ADMISSION: 46 years old female without significant past medical history, presented to emergency room complaining of epigastric abdominal pain. Pain described as sharp, 8/10, radiating to the back, started that day. She denied chest pain or shortness of breath. No fever. No chills. Noted nausea, but no vomiting. Vital signs were stable. Noted leukocytosis, WBC- 12, stable hemoglobin and hematocrit, low potassium. Elevated LFT: AST- 285, ALT -199. Lipase -196, within normal limits. Right upper quadrant ultrasound showed multiple gallstones, thickened gallbladder wall with dilated common bile duct. Urinalysis with evidence of UTI The patient was given antibiotic. The patient was admitted for acute cholecystitis, hypokalemia and elevated LFT. HOSPITAL COURSE: The patient was admitted. Surgery and GI consults were requested. The patient was initially NPO, then started on the IV fluids and antibiotics. LFT were trending. DVT and GI prophylaxes provided. Electrolytes corrected as needed. Pain management provided. Antiemetic provided as needed. HIDA scan was negative. Since HIDA scan was negative, surgeon cleared patient to start diet as tolerated , stating that surgery can be done as outpatient. GI closely followed. LFT trending down prior to discharge. Urine culture revealed Proteus. Patient was on antibiotics, optimized based on culture. Leukocytosis resolved. Pain addressed and controlled. AST from 285 down to 47 and ALT from 199 down to 180. Potassium -3.5 and sodium -139. The patient was stable for discharge. Outpatient follow up with the surgeon for elective surgery. FINAL DIAGNOSES: 1. Acute cholecystitis. 2. Elevated liver function tests. 3. Symptomatic cholelithiasis. 4. Biliary colic. 5. Urinary tract infection with Proteus. 6. Hypokalemia. DISCHARGE MEDICATIONS: Prescription provided. DISCHARGE INSTRUCTIONS: The patient discharged home. Follow up with the surgeon as outpatient for elective surgery. Rick Chavez M.D. I have been assigned to dictate discharge summary on this account and I was not involved in the patient's management. Alix EarlyTaqueria johnston DR: SABIHA JOB#: [id number] CC: ANIL
== END 2017-05-02 17:35 | disposition home or self-care (01) ==
LOC: EMR 22:42 → 4W 04-30 00:55 → EDBEDREQ 04-30 02:28 → 3E 04-30 18:42
DX: K80.12 Calculus of gallbladder with acute and chronic cholecystitis without obstruction (principal); E87.1 Hypo-osmolality and hyponatremia; E87.6 Hypokalemia; N39.0 Urinary tract infection, site not specified; B96.4 Proteus (mirabilis) (morganii) as the cause of diseases classified elsewhere; R79.89 Other specified abnormal findings of blood chemistry
CPT/HCPCS: 36415; 76700; 78266; 80053; 80061; 81003; 81025; 83036; 83690; 85025; 87086; 87181; 99285; J2405; J8499